=== PATIENT | male | born 1955 | race Caucasian/White ===

== ENCOUNTER → 2018-03-10 | Day surgery (SDC) | payer OTHER ==
[~2018-03-10] MED LIST: ASPIRIN81 MG PO; ATORVASTATIN CA20 MG PO; B12; BISOPROLOL-HCT1 EAC2 PO; BUPROPION HCL150 MG PO; CALCIUM PO; CIALIS20 MG PO; DAILY VALUE1 EACH PO; FARXIGA; FARXIGA PO; FENTANYL CITRATE/PF 100MCG/2 ML INJ ONE; FLAX SEED OIL1000 MG PO; FLONASE16 GM INH; GEMFIBROZIL600 MG PO; GLUCAGON FOR INJ 1 MG VIAL ONE; GLUCOSAMINE CH1 EAC3 PO; HYOSCYAMINE SULFATE 0.5 MG/ML INJ ONE; IBUPROFEN600 MG PO; JANUMET 50-1,01 EACH; JANUMET XR 50-1 EAC1 PO; LYRICA150 MG PO; MIDAZOLAM HCL 2 MG/2 ML VIAL ONE; NIACIN1000 MG PO; PRILOSEC40 MG PO; PROPOFOL IV EMULSION 10 MG/ML 50 ML VIAL ONE; SIMETHICONE 40 MG/0.6 ML BTL ONE; VITAMIN B COMP1 EAC3 PO; VITAMIN B12; VITAMIN D2400 UNIT; ZETIA10 MG PO; ZYRTEC10 MG PO
--- OUTSIDE RECORDS SUMMARY | 2018-03-10 07:10 | XMS REPORT ---
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 Status Former Smoker Quit in 1981 September 23, 2014 Alcohol Use Yes. Social alcohol September 23, 2014 Alcohol Screening: Yes. Points: 1, Interpretation: Negative September 23, 2014 Marital Status: . September 23, 2014 Do you drink alcohol? Yes. September 23, 2014 Occupation: . glass handler in [place] September 23, 2014 Summary Purpose [employer] Submission
--- OUTSIDE RECORDS SUMMARY | 2018-03-10 07:10 | XMS REPORT | Continuity of Care Document ---
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 Problem 10/01/2014 Leno Kumar Hypercholesterolemia Active Problem 10/01/2014 Leno Kumar Abnormal EKG Active Problem 10/01/2014 Leno Kumar HTN, Benign Active Problem 10/01/2014 Leno Kumar Shortness of breath Active Problem 10/01/2014 Leno Kumar Medications Medication Details Route Status Patient Instructions Ordering Provider Order Date Source Allergies, Adverse Reactions, Alerts Substance Category Reaction Severity Reaction type Status Date Reported Comments Source Immunizations Immunization Date Given Site Status Last Updated Comments Source Results Order Name Results Value Reference Range Date Interpretation Comments Source Vital Signs Vital Sign Value Date Comments Source Encounters Location Location Details Encounter Type Encounter Number Reason For Visit Attending Provider ADM Date DC Date Status Source Leno Kumar MD [place] Update Demographics - Personal Info [id number] 09/22/2014 09/22/2014 Leno Kumar Procedures Procedure Code Date Perfomer Comments Source
[2018-03-10 09:30] VITALS: BP 151/98
--- NOTE | 2018-03-10 09:58 | Operative Report ---
DATE OF PROCEDURE: March 10, 2018 REFERRING PHYSICIAN: Dr. Shai Trevino PROCEDURE PERFORMED: Colonoscopy and polypectomy. INDICATIONS FOR COLONOSCOPY: Colorectal cancer screening. MEDICATION: Patient was done under MAC. Please see anesthesiologist's note. PROCEDURE: With the patient in the left lateral decubitus position, the flexible fiberoptic Olympus colonoscope was inserted into the rectum with ease and advanced all the way to the cecum. It was then withdrawn slowly. Mucosa overlying the cecum, ascending colon and transverse colon appeared to be within normal limits. One polyp was hot biopsied from the descending colon. Three polyps were hot biopsied from the sigmoid colon. The rectum appeared to be within normal limits. The scope was then retroflexed into the distal rectum and moderate size internal hemorrhoids were noted, none of which was actively bleeding. The scope was then straightened out. It was subsequently withdrawn. Patient tolerated the procedure well. IMPRESSION 1. Descending colon polyp, hot biopsied. 2. Sigmoid colon polyps times 3, hot biopsied. 3. Internal hemorrhoids, none actively bleeding. PLAN: Follow up histology. Initiate high-fiber and low-fat diet. Initiate high-fiber supplement. Patient will need a followup colonoscopy in 3 years. Job#: [id number] RI cc:SHAI TREVINO MD
== END | disposition home or self-care (01) ==
LOC: OR 07:00
PROVIDERS: ATTEND Internal Medicine Gastroenterology
DX: Z12.11 Encounter for screening for malignant neoplasm of colon (principal); K63.5 Polyp of colon; I10 Essential (primary) hypertension; E11.9 Type 2 diabetes mellitus without complications; K64.8 Other hemorrhoids; B18.2 Chronic viral hepatitis C; Z79.84 Long term (current) use of oral hypoglycemic drugs; Z79.82 Long term (current) use of aspirin; Z88.0 Allergy status to penicillin
CPT/HCPCS: 36415; 45384; 82948; 93005; J1610; J1980; J2250; 45378